=== PATIENT | male | born 1955 | race Caucasian/White ===

== ENCOUNTER → 2024-01-17 16:36 | Outpatient (REF) | payer OTHER, SELFPAY | LOC: HWRAD 16:36 | PROVIDERS: ATTENDING PHYSICIAN Family Medicine | DX: M25.561 Pain in right knee (principal) | CPT/HCPCS: 73564 ==

== ENCOUNTER → 2025-07-26 14:28 | Outpatient (REF) | payer OTHER, SELFPAY | LOC: DHVS 14:28 | PROVIDERS: ATTENDING PHYSICIAN Specialist; FAMILY PHYSICIAN Family Medicine | DX: I10 Essential (primary) hypertension (principal) | CPT/HCPCS: 93975 ==